=== PATIENT | male | born 1955 | race African-American/Black ===

== ENCOUNTER 2016-11-26 23:05 | Inpatient (IN) | payer OTHER ==
--- NOTE | ~2016-11-26 | EKG ---
PATIENT: KRISTINE WALLACE UNIT #: [id number] Ventricular Rate: 115 BPM Atrial Rate: 115 BPM P-R Interval: 140 ms QRS Duration: 94 ms Q-T Interval: 334 ms QTC Calculation(Bezet): 462 ms P [place]: 61 degrees Calculated R [place]: -36 degrees Calculated T [place]: 69 degrees Diagnosis Line: Sinus tachycardia Diagnosis Line: Possible Left atrial enlargement Diagnosis Line: Left axis deviation Diagnosis Line: Left ventricular hypertrophy Diagnosis Line: Abnormal ECG Diagnosis Line: No previous ECGs available Diagnosis Line: Confirmed by BERYL SUNG MD ([id number]) on 11/27/2016 Diagnosis Line: 6:14:19 PM INTERPRETING MD: ANA LILIA COHEN
--- NOTE | ~2016-11-26 | CR72 ---
[facility] A Service of [facility] & [facility] RADIOLOGY TEXT RESULTS PATIENT: KRISTINE WALLACE LOCATION: [place] [address] : [birth year] UNIT #: [id number] AGE: [address]: Kandice Serrato MD SEX: M ORDER DR: [id number] [facility] [address] [place], [place] [address] [id number] I MR#: [id number] Acc #: [id number] NAME: KRISTINE WALLACE. : 1955 SEX: M STUDY DATE/TIME: 11/26/2016 22:47 UNIT: CEDOF ROOM: 73677 STUDY DESCRIPTION: CR Chest Single View Portable Attending Physician: Christina Mustafa M.D. Ordering Physician: Ronny Lora D.O. Primary Care Physician: Nazia Rucker M.D. MEDICAL IMAGING REPORT This report is preliminary unless electronic signature is present EXAM Chest x-ray portable, 11/26/2016 HISTORY Short of air, cough, COPD, symptoms for a week, asthma, CHF, diabetes, hypertension. COMMENT Single frontal portable view of the chest timed 22:47 11/26/2016 compared to 14:17. There is ectasia at least of the thoracic aorta ascending portion. This is noted on prior study is well and most commonly seen secondary to hypertension or aortic valvular disease. Mild cardiac silhouette enlargement again seen also not changed. There is patchy airspace disease at the left base which is new on comparison to prior and please correlate for any clinical concern for aspiration or early pneumonia. It is possible this is a small amount of patchy pulmonary edema due to volume overload but there is no suggestion of congestive failure otherwise. No pleural effusion is suspected. Probably some chronic changes at the right base. No pneumothorax. IMPRESSION 1. I believe there is a small amount of new patchy airspace disease left lung base. Please correlate for clinical concern for aspiration or early pneumonia. There is again mild cardiac silhouette enlargement. There is no pleural effusion or other suggestion of congestive failure. 2. Redemonstration of ectasia of the ascending thoracic aorta. This is most commonly seen secondary to hypertension or aortic valvular disease. It is also noted on the study of 11/19/2016. [facility] A Service of [facility] RADIOLOGY TEXT RESULTS PATIENT: KRISTINE WALLACE LOCATION: [facility] [id number] : [birth year] UNIT #: [id number] AGE: [address]: Kandice Serrato MD SEX: M ORDER DR: Dictated by... Jena Brooke M.D. THIS IS AN ELECTRONICALLY VERIFIED REPORT Jena Brooke M.D. at 11/27/2016 2:19 PM JAYLAN/ashanti TD: 11/27/2016 03:32 JOB #: [id number] MEDICAL IMAGING REPORT COPY
--- NOTE | ~2016-11-26 | HP ---
Unit #: [id number] #: [id number] Patient: KRISTINE WALLACE [id number] [address] [place], [place] [address] [id number] I MR#: [id number] NAME: KRISTINE WALLACE. ROOM: 05702 Age: 61 Sex: M Admission Date: 11/27/2016 : 1955 Attending Physician: Christina Mustafa M.D. Primary Care Physician: Nazia Rucker M.D. HISTORY AND PHYSICAL CHIEF COMPLAINT Community acquired pneumonia with COPD exacerbation, failing outpatient treatment. HISTORY This pleasant 61-year-old male with COPD, nonischemic cardiomyopathy, AODM, is admitted for pneumonia. The patient was well until 1 1/2 weeks prior to admission when he developed increasing shortness of breath despite using his nebulizer and being placed on steroids. More recently developed a deep cough productive of yellow sputum, feeling feverish, chilled with worsening bronchospasm. Also noted poor p.o. intake yesterday with upper abdominal discomfort. He presented to this emergency department last evening with stable vital signs, except somewhat tachycardic. On examination he does have bronchospasm, chest x-ray shows a left lower lobe infiltrates. Labs are notable for serum glucose of 492. In the ER the patient was treated with 125 mg of Solu-Medrol, 2 g of Rocephin, 500 mg of IV Zithromax. He was given 10 IV of regular insulin, currently is receiving a saline bolus. PAST MEDICAL HISTORY 1. History of hypotension secondary to dehydration. 2. Chronic kidney disease with a baseline creatinine of about 1.4. 3. COPD. 4. AODM. 5. Nonischemic cardiomyopathy followed by Dr. Morton. However, most recent echo 02/2014 revealed an ejection fraction greater than 55% with mild MR and AR. Cardiac catheterization in 2004 revealed angiographically normal coronary arteries. 6. Hypertension. 7. Tonsillectomy. 8. Elbow surgery. 9. Cyst removal. 10. Cataract extraction. ALLERGIES No known drug allergies. HOME MEDICATIONS Neurontin 600 mg q.i.d.; Spiriva one puff daily; Symbicort 80/4.5 two puffs b.i.d.; Viagra 100 mg as needed; Lipitor 80 mg daily; Medrol dose pack; Lasix 40 mg b.i.d.; Diovan 80 mg daily; Coreg 6.25 mg b.i.d.; Levemir 45 units subcu b.i.d. Patient states that normally he uses 35 units subcu b.i.d. but this was increased while on steroids. Unit #: [id number] #: [id number] Patient: KRISTINE WALLACE FAMILY HISTORY Diabetes mellitus. SOCIAL HISTORY The patient lives with his . He seldom drinks alcohol. Stopped smoking in 2004. REVIEW OF SYSTEMS Notable for shortness of breath, productive cough, feverish, chills, poor p.o. intake, epigastric discomfort, diabetes, nonischemic cardiomyopathy, chronic kidney disease, AODM, neuropathy, hypertension, and above mentioned surgeries. All other systems were reviewed and are negative. PHYSICAL EXAMINATION GENERAL: Pleasant, somewhat ill-appearing, young-appearing, 61-year-old male. VITAL SIGNS: Temperature 98.1, pulse 115, respirations 19, blood pressure 118/74, O2 saturation is 98% on room air. HEENT: Eyes - PERRLA, extraocular muscles are intact. Pharynx is benign. NECK: Supple without adenopathy or thyromegaly. CHEST: Reveals end expiratory wheeze and some crackles at the left base, along with rhonchi. CARDIAC: Tachy S1 and S2 without murmur. ABDOMEN: Bowel sounds are present. Mild epigastric tenderness without rebound or guarding. No hepatosplenomegaly or masses. EXTREMITIES: Without clubbing, cyanosis or edema. Pedal pulses are diminished. No ulcers on the feet. NEUROLOGIC: Patient is awake, alert, and oriented. Cranial nerves are intact. Equal strength throughout. DIAGNOSTIC STUDIES ADMISSION LABS: Hematocrit is 45.5, white blood count is 18, normal platelet count. Coags normal. SMA 12 - glucose 492, BUN 32, creatinine 1.5 up from a creatinine of 1.4, sodium 130, which corrects with glucose, chloride 94, protein is 8.4, alk phos is 121, BNP is 192. Lactic acid normal of uncertain significance, as patient does appear to be ill. Troponin is negative. Influenza serology last week negative. IMAGING STUDIES: Chest x-ray suspicious for a left lower lobe infiltrate. CARDIOLOGY STUDIES: EKG shows sinus tachycardia, rate 115, left axis deviation. ASSESSMENT 1. Community acquired pneumonia with COPD exacerbation, failing outpatient treatment. 2. Uncontrolled AODM secondary to steroids. 3. Nonischemic cardiomyopathy, although most recent echo revealed an ejection fraction of 55%. 4. Chronic kidney disease. 5. Hypertension. 6. Epigastric tenderness. PLANS 1. Rocephin, Zithromax, pending cultures. 2. Mucolytics, bronchodilators, and short course of steroids. 3. IV fluids and supportive treatment. Will hold Lasix for now. Unit #: [id number] #: [id number] Patient: KRISTINE WALLACE 4. DVT and gastritis prophylaxis. 5. Increase Levemir and sliding scale insulin. 6. Check amylase and lipase. Dictated by Christina Mustafa M.D. CASA/morteza TD: 11/27/2016 06:35 JOB #: [id number] HISTORY AND PHYSICAL X Christina Mustafa MD X HISTORY AND PHYSICAL
--- NOTE | ~2016-11-26 | DS ---
Unit #: [id number] #: [id number] Patient: KRISTINE WALLACE [id number] [address] [address] [id number] I MR#: [id number] NAME: KRISTINE WALLACE. ROOM: 552 Age: 61 Sex: M Admission Date: 11/27/2016 : 1955 Discharge Date: Attending Physician: Kandice Serrato M.D. Primary Care Physician: Nazia Rucker M.D. DISCHARGE SUMMARY DISCHARGE DIAGNOSES 1. Community-acquired pneumonia. 2. Chronic obstructive pulmonary disease with exacerbation. 3. Diabetes mellitus type 2. 4. Noncompliant with medications. 5. Hyperglycemia, secondary to steroids. 6. Chronic diastolic heart failure. 7. Chronic kidney disease stage 2. 8. Hypertension. CONSULTATION None. PROCEDURE None. DIAGNOSTIC STUDIES LABORATORY: Glucose 207. Sputum culture is normal respiratory leah and gram-negative rods. Sodium 134, creatinine 1.4, albumin 2.6. WBC 20.8, hemoglobin 11.8, platelets 216,000. Blood cultures negative. Lactic acid 1.1. BNP 192. ALLERGIES None. DISCHARGE MEDICATIONS 1. Symbicort two puffs inhalation b.i.d. 2. Prednisone tapering dose. 3. Spiriva two puffs inhalation daily. 4. Neurontin 600 four times daily. 5. Atorvastatin 80 daily. 6. Coreg 6.25 p.o. b.i.d. 7. Lasix 40 p.o. b.i.d. 8. Diovan 80 daily. 9. Levemir 50 units subcutaneous b.i.d. 10. NovoLog 5 units subcutaneous three times daily with meals, prescription given. 11. Viagra 100 mg p.o. daily p.r.n. 12. Augmentin 875 mg p.o. b.i.d. 13. Albuterol mini nebs four times daily, home medication. HOSPITALIZATION COURSE A 61 year old admitted because of shortness of breath. Unit #: [id number] #: [id number] Patient: KRISTINE WALLACE Community-acquired pneumonia: The patient was given IV Rocephin and Zithromax. The patient currently afebrile. Mild elevated leukocytosis secondary to steroids. The patient will be discharged on Augmentin. COPD with exacerbation: Started on IV Solu-Medrol and DuoNeb. Currently breathing better. Lungs clear. The patient will be discharged on DuoNeb, Spiriva, prednisone tapering dose. Diabetes mellitus type 2: Uncontrolled, most likely secondary to steroids and also noncompliant with his diet. He was eating [employer] and biscuits in his room when I went into his room today. Industrial Sales Engineer saw this patient, talked to him in detail. I gave NovoLog insulin during meal time also on top of his Levemir. I increased his Levemir dose. He needs to follow with family physician for followup of diabetes. The patient understood the followup instructions. Chronic diastolic heart failure: Stable. DISPOSITION The patient will be discharged home. FOLLOWUP Follow with family physician in one week time. Dictated by... Sara Cox TD: 11/29/2016 15:25 JOB #: [id number] DISCHARGE SUMMARY X Kandice Serrato MD X DISCHARGE SUMMARY
--- NOTE | ~2016-11-26 | A ---
[facility] Nutrition Therapy DATE: 11/27/16 Patient: KRISTINE WALLACE Physician: VIVIAN Address: [address] [place] [address] Room/Bed: [address] [place] [address], Zip: [place] [address] Admit Date: 11/27/16 Date of : [birth year] Height: Weight: 195 88.45 NUTRITIONAL ASSESSMENT: REASON: RD c/s for DM education PMH: COPD, Cardiomyopathy, CKD, HTN, DM Anthropometrics: 70", 195#, BMI 28 Labs: Gluc 307, BUN 31, POC 237 Meds: Lipitor, Novolog, Pepcid, Levemir, Solumedrol Assessment: 61 y/o male admitted for CAP/COPD exac. Hx DM. Gluc in ER-400s. MD requesting diet education. Pt reports has been to Diabetic classes, understands what foods contain carbs and familiar w/carb counting. Appears to have difficulty sticking w/schedule and staying compliant w/diet. States works 2nd shift. Encouraged 60 gm carb/meal and 30 gm/bedtime snack. Pt verbalized understanding. Understands risk uncontrolled DM. Intervention: 1. Carb consistent diet Monitoring, Evaluation and Goals: 1. Improve Gluc Recommendations: Continue current diet Respectfully, BERNARD WEISS RD, LD Food and Nutritional Services [facility] cc: client file
[2016-11-26 23:00] LABS: BASOPHIL# 0.1 X10e3 (0-0.3); BASOPHIL% 0.3 % (0-2.5); EOSINOPHIL# 0.1 X10e3 (0-0.7); EOSINOPHIL% 0.6 % (0.0-7.0); HEMATOCRIT 45.5 % (38.0-50.0); HEMOGLOBIN 15.5 gm/dL (13.0-16.0); LYMPHOCYTE# 1.3 X10e3 (1.0-3.5); LYMPHOCYTE% 7.4 % (17.0-45.0); MEAN CELL VOLUME 82.9 FL (83-96); MEAN CORPUSCULAR HEMOGLOBIN 28.2 PG (28-34); MEAN PLATELET VOLUME 10.4 FL (6.5-11.5); MONOCYTE# 1.3 X10e3 (0-1.0); MONOCYTE% 7.3 % (3.0-12.0); NEUTROPHIL# 15.2 X10e3 (1.5-7.1); NEUTROPHIL% 84.4 % (40-75); PLATELET COUNT 289 X10e3 (140-420); RED CELL DISTRIBUTION WIDTH 13.5 % (11.0-15.5)
[2016-11-26 23:01] LABS: DIFF IND YES
[~2016-11-26 23:05] MED LIST: ACETAMINOPHEN PO; ADVAIR 250-501 EAC1 IH; ADVAIR 250-501 EACH IH; ALB/IPRATROPIUM/1 E1 INH; ALBUTEROL 0.5ML INH; ALBUTEROL17 G1 IH; ALBUTEROL17 GM INH; ALDACTONE PO; ALDACTONE25 MG PO; ASPIRIN PO; ASPIRIN81 MG PO; CARVEDILOL6.25 MG PO; CHERATUSSIN AC118 ML PO; CLEOCIN PO; COLACE PO; COMBIVENT INH14.7 GM; COMBIVENT MININEB INH; COMBIVENT U/D3 ML INH; COMBIVENT14.7 GM INH; COREG PO; COREG3.125 MG PO; COREG6.25 MG PO; DIOVAN160 MG PO; DIOVAN80 M1 PO; DOXYCYCLIN25 MG/5 ML PO; DOXYCYCLINE HY100 M1 PO; DOXYCYCLINE150 MG PO; DUONEB 2.5-0.5 M3 ML NEB; EXFORGE; EXFORGE 10-1601 TAB PO; FLONASE16 GM; FUROSEMIDE40 MG PO; GLIPIZIDE10 MG PO; GLIPIZIDE10 MG/BOTT PO; KAYEXALATE453.6 GM PO; KCL PO; LASIX PO; LEVAQUIN PO; LEVAQUIN750 MG PO; LEVEMIR FL100 UNIT/1 SUBQ; LEVEMIR SUBQ; LEVEMIR100 U/ML SUBQ; LORTAB PO; LOTREL 5/20 MG1 CAP PO; MEDROL DOSEPAK4 MG; MEDROL DOSEPAK4 MG DOB; MEDROL PO; MEDROL4 MG/DOSE- PO; NAPROSYN375 MG PO; NAPROSYN500 MG PO; NEURONTIN600 MG PO; NOVOLOG FL100 UNIT/1; PAIN RELIEVER325 M1 PO; PHENERGAN DM1 ML DOB; PRAVACHOL20 MG; PRAVACHOL20 MG PO; PRAVASTATIN SOD20 MG PO; PRAVASTATIN SOD40 MG PO; PREDNISONE PO; PREDNISONE10 MG PO; PREDNISONE10 MG/DOSE PO; PRILOSEC20 MG PO; PROTONIX PO; RAYOS5 MG PO; ROBITUSSIN15 MG/5 ML PO; SPIRIVA RESPIMAT4 G1 INH; STERAPRED5 MG/DOSE1; STERAPRED5 MG/DOSE1 PO; SYMBICORT INH; SYMBICORT80 INH; TUSSIN15 MG/5 M1 PO; ULTRAM PO; VALSARTAN80 MG PO; VIBRAMYCIN100 M1; VIBRAMYCIN100 M1 PO; ZITHROMAX PO; ZITHROMAX1 G/PKT PO; ZITHROMAX500 MG PO; ZYRTEC PO
[2016-11-26] MEDS ORDERED: TENORMIN25 MG PO (23:14)
[2016-11-26 23:24] LABS: ALBUMIN SERUM 4.4 g/dL (3.5-5.0); ALKALINE PHOSPHATASE 121 U/L (32-92); ALT (SGPT) 33 U/L (10-40); ANISOCYTOSIS SL; AST (SGOT) 20 U/L (10-42); BILIRUBIN, DIRECT 0.1 mg/dL (0.0-0.2); BILIRUBIN,INDIRECT 0.7 mg/dL (0.0-0.9); BILIRUBIN,TOTAL 0.8 mg/dL (0.2-2.0); BLOOD UREA NITROGEN 32 mg/dL (9-23); BUN/CREATININE RATIO 21.33; CALCIUM SERUM 9.9 mg/dL (8.4-10.2); CARBON DIOXIDE 25 mmol/L (22-31); CHLORIDE 94 mmol/L (100-111); CREATININE SERUM 1.5 mg/dL (0.6-1.4); GLOM FILT RATE Estimated ABOVE60 mL/min (>60); GLUCOSE FASTING 492 mg/dL (70-110); PLATELET ESTIMATE NORMAL (NORMAL); POTASSIUM 4.1 mmol/L (3.5-5.1); PROTEIN TOTAL SERUM 8.4 g/dL (6.0-8.3); SODIUM 130 mmol/L (135-145)
[2016-11-27 00:30] LABS: PARTIAL THROMBOPLASTIN TIME 25.4 SECONDS (23.5-31.3); PROTHROMBIN TIME (PATIENT) 10.4 SECONDS (9.6-11.5)
[2016-11-27] MEDS ORDERED: NEURONTIN600 MG PO (00:48)
[2016-11-27] MEDS ORDERED: SYMBICORT80 INH (00:49)
[2016-11-27] MEDS ORDERED: SPIRIVA RESPIMAT4 G1 INH (00:49)
[2016-11-27] MEDS ORDERED: VIAGRA PO (00:50)
[2016-11-27] MEDS ORDERED: ATORVASTATIN CA80 MG PO (00:51)
[2016-11-27] MEDS ORDERED: MEDROL4 MG/DOSE- PO (00:51)
[2016-11-27] MEDS ORDERED: DIOVAN80 M1 PO (00:52)
[2016-11-27] MEDS ORDERED: LASIX PO (00:52)
[2016-11-27] MEDS ORDERED: CARVEDILOL6.25 MG PO (00:54)
[2016-11-27] MEDS ORDERED: LEVEMIR100 UNITS/ SUBQ (00:54)
[2016-11-27 01:10] LABS: POC - CKMB 2.9 ng/mL (0.0-7.9); POC - TROPONIN <0.05 ng/mL (<=0.05)
[2016-11-27 03:35] LABS: BASOPHIL# 0.1 X10e3 (0-0.3); BASOPHIL% 0.3 % (0-2.5); EOSINOPHIL% 0.1 % (0.0-7.0); HEMATOCRIT 40.4 % (38.0-50.0); LYMPHOCYTE% 4.6 % (17.0-45.0); MEAN CELL VOLUME 81.1 FL (83-96); MEAN CORPUSCULAR HEMOGLOBIN 28.1 PG (28-34); MEAN CORPUSCULAR HGB CONC 34.7 g/dL (30-36); MEAN PLATELET VOLUME 9.5 FL (6.5-11.5); MONOCYTE# 0.6 X10e3 (0-1.0); MONOCYTE% 2.9 % (3.0-12.0); NEUTROPHIL# 20.4 X10e3 (1.5-7.1); NEUTROPHIL% 92.1 % (40-75); PLATELET COUNT 241 X10e3 (140-420); RED BLOOD COUNT 4.98 X10e (3.90-5.60); RED CELL DISTRIBUTION WIDTH 13.3 % (11.0-15.5); WHITE BLOOD COUNT 22.1 X10e3 (4.0-10.5)
[2016-11-27 03:39] LABS: DIFF IND NO
[2016-11-27 03:47] LABS: AMYLASE 29 U/L (0-46); BLOOD UREA NITROGEN 31 mg/dL (9-23); BUN/CREATININE RATIO 22.14; CALCIUM SERUM 8.7 mg/dL (8.4-10.2); CARBON DIOXIDE 22 mmol/L (22-31); CHLORIDE 102 mmol/L (100-111); CREATININE SERUM 1.4 mg/dL (0.6-1.4); GLOM FILT RATE Estimated ABOVE60 mL/min (>60); GLUCOSE FASTING 307 mg/dL (70-110); LIPASE 35 U/L (22-51); POTASSIUM 4.5 mmol/L (3.5-5.1); SODIUM 132 mmol/L (135-145)
[2016-11-28 05:48] LABS: MEAN CELL VOLUME 82.7 FL (83-96); MEAN CORPUSCULAR HEMOGLOBIN 27.9 PG (28-34); MEAN CORPUSCULAR HGB CONC 33.7 g/dL (30-36); MEAN PLATELET VOLUME 10.3 FL (6.5-11.5); RED BLOOD COUNT 4.22 X10e (3.90-5.60); RED CELL DISTRIBUTION WIDTH 13.4 % (11.0-15.5); WHITE BLOOD COUNT 20.8 X10e3 (4.0-10.5)
[2016-11-28 05:50] LABS: HEMOGLOBIN 11.8 gm/dL (13.0-16.0)
[2016-11-28 07:04] LABS: ALBUMIN SERUM 2.6 g/dL (3.5-5.0); ALKALINE PHOSPHATASE 78 U/L (32-92); ALT (SGPT) 19 U/L (10-40); AST (SGOT) 13 U/L (10-42); BILIRUBIN,TOTAL 0.5 mg/dL (0.2-2.0); BLOOD UREA NITROGEN 44 mg/dL (9-23); BUN/CREATININE RATIO 31.42; CARBON DIOXIDE 19 mmol/L (22-31); CHLORIDE 106 mmol/L (100-111); CREATININE SERUM 1.4 mg/dL (0.6-1.4); GLOM FILT RATE Estimated ABOVE60 mL/min (>60); GLUCOSE FASTING 438 mg/dL (70-110); MAGNESIUM 1.8 mg/dL (1.6-3.0); PHOSPHOROUS 3.3 mg/dL (2.5-4.6); POTASSIUM 4.6 mmol/L (3.5-5.1); PROTEIN TOTAL SERUM 5.6 g/dL (6.0-8.3); SODIUM 134 mmol/L (135-145)
[2016-11-29] MEDS ORDERED: PREDNISONE10 MG (14:55)
[2016-11-29] MEDS ORDERED: PREDNISONE10 MG PO (14:58)
[2016-11-29] MEDS ORDERED: NOVOLOG100 UNITS/ SUBQ (15:00)
[2016-11-29] MEDS ORDERED: AUGMENTIN875 M1 PO (15:07)
== END 2016-11-29 15:45 | disposition home or self-care (01) | DRG 190 ==
LOC: CED 23:05 → CEDOF 11-27 01:40 → C5B 11-27 07:52
PROVIDERS: Emergency Medicine; Internal Medicine
DX: J44.1 Chronic obstructive pulmonary disease with (acute) exacerbation (principal); J18.9 Pneumonia, unspecified organism; I50.32 Chronic diastolic (congestive) heart failure; E09.8 Drug or chemical induced diabetes mellitus with unspecified complications; Z91.14 Patient's other noncompliance with medication regimen; I12.9 Hypertensive chronic kidney disease with stage 1 through stage 4 chronic kidney disease, or unspecified chronic kidney disease; N18.2 Chronic kidney disease, stage 2 (mild); T38.0X5A Adverse effect of glucocorticoids and synthetic analogues, initial encounter; Z83.3 Family history of diabetes mellitus; Z79.4 Long term (current) use of insulin
CPT/HCPCS: 36415; 71010; 80048; 80053; 80076; 82150; 82553; 82947; 83605; 83690; 83735; 83880; 84100; 84484; 85025; 85027; 85610; 85730; 87040; 87070; 87077; 87186; 87205; 93005; 94640; 94760; 96365; 96375; 99285; J0456; J0696; J1815; J2920; J2930

== ENCOUNTER 2017-01-19 06:29 | Emergency (ER) | payer OTHER ==
--- NOTE | ~2017-01-19 | EKG ---
PATIENT: KRISTINE WALLACE UNIT #: [id number] Ventricular Rate: 87 BPM Atrial Rate: 87 BPM P-R Interval: 158 ms QRS Duration: 98 ms Q-T Interval: 412 ms QTC Calculation(Bezet): 495 ms P [place]: 63 degrees Calculated R [place]: -43 degrees Calculated T [place]: 28 degrees Diagnosis Line: Normal sinus rhythm Diagnosis Line: Possible Left atrial enlargement Diagnosis Line: Left axis deviation Diagnosis Line: Left ventricular hypertrophy Diagnosis Line: Prolonged QT Diagnosis Line: Abnormal ECG Diagnosis Line: No previous ECGs available Diagnosis Line: Confirmed by JOSÉ LUIS SULLIVAN MD ([id number]) on Diagnosis Line: 01/19/2017 3:55:24 PM INTERPRETING MD: STUART
--- NOTE | ~2017-01-19 | CR72 ---
[facility] A Service of [facility] & [facility] RADIOLOGY TEXT RESULTS PATIENT: KRISTINE WALLACE LOCATION: [facility] : [birth year] UNIT #: [id number] AGE: [address]: Pankaj Corbett MD SEX: M ORDER DR: [id number] [facility] [address] [place], [place] [address] [id number] E MR#: [id number] Acc #: [id number] NAME: KRISTINE WALLACE. : 1955 SEX: M STUDY DATE/TIME: 01/19/2017 5:47 UNIT: [facility] ROOM: STUDY DESCRIPTION: CR Chest Single View Portable Attending Physician: Pankaj Corbett M.D. Ordering Physician: Koffi Combs M.D. Primary Care Physician: Nazia Rucker M.D. MEDICAL IMAGING REPORT This report is preliminary unless electronic signature is present EXAM Portable chest INDICATIONS Shortness of air and weakness beginning today. COMPARISON 11/26/2016. A portable view of the chest was obtained. The heart size and vascularity are normal. Lungs are clear. Bones are unremarkable. IMPRESSION No active disease. Dictated by... Itz Barakat M.D. THIS IS AN ELECTRONICALLY VERIFIED REPORT Itz Barakat M.D. at 01/19/2017 9:55 PM TETO/napoleon TD: 01/19/2017 19:40 JOB #: [id number] MEDICAL IMAGING REPORT Page 1 of 1 COPY
[2017-01-19 06:05] LABS: BASOPHIL% 0.3 % (0-2.5); EOSINOPHIL# 0.4 X10e3 (0-0.7); EOSINOPHIL% 4.9 % (0.0-7.0); HEMOGLOBIN 12.9 gm/dL (13.0-16.0); LYMPHOCYTE# 1.7 X10e3 (1.0-3.5); LYMPHOCYTE% 18.3 % (17.0-45.0); MEAN CELL VOLUME 84.6 FL (83-96); MEAN CORPUSCULAR HEMOGLOBIN 28.8 PG (28-34); MEAN PLATELET VOLUME 10.5 FL (6.5-11.5); MONOCYTE# 0.8 X10e3 (0-1.0); MONOCYTE% 8.9 % (3.0-12.0); NEUTROPHIL# 6.2 X10e3 (1.5-7.1); NEUTROPHIL% 67.6 % (40-75); PLATELET COUNT 193 X10e3 (140-420); RED BLOOD COUNT 4.49 X10e (3.90-5.60); RED CELL DISTRIBUTION WIDTH 14.7 % (11.0-15.5); WHITE BLOOD COUNT 9.1 X10e3 (4.0-10.5)
[2017-01-19 06:08] LABS: DIFF IND NO
[~2017-01-19 06:29] MED LIST changes: +ATORVASTATIN CA80 MG PO; +AUGMENTIN875 M1 PO; +LEVEMIR100 UNITS/ SUBQ; +NOVOLOG100 UNITS/ SUBQ; +PREDNISONE10 MG; +TENORMIN25 MG PO; +VIAGRA PO
[2017-01-19 06:42] LABS: ALBUMIN SERUM 3.5 g/dL (3.5-5.0); BILIRUBIN, DIRECT 0.1 mg/dL (0.0-0.2); BILIRUBIN,INDIRECT 0.4 mg/dL (0.0-0.9); BILIRUBIN,TOTAL 0.5 mg/dL (0.2-2.0); BUN/CREATININE RATIO 16.15; CREATININE SERUM 1.3 mg/dL (0.6-1.4); GLOM FILT RATE Estimated 68.8 mL/min (>60); POTASSIUM 3.8 mmol/L (3.5-5.1); PROTEIN TOTAL SERUM 6.6 g/dL (6.0-8.3)
[2017-01-19 06:53] LABS: POC - CKMB 2.1 ng/mL (0.0-7.9); POC - TROPONIN <0.05 ng/mL (<=0.05)
== END 2017-01-19 07:45 | disposition home or self-care (01) ==
LOC: CED 06:29
PROVIDERS: Emergency Medicine
DX: J44.1 Chronic obstructive pulmonary disease with (acute) exacerbation (principal); I11.0 Hypertensive heart disease with heart failure; I50.9 Heart failure, unspecified; E10.9 Type 1 diabetes mellitus without complications; Z79.899 Other long term (current) drug therapy
CPT/HCPCS: 36415; 71010; 80048; 80076; 82553; 82947; 83880; 84484; 85025; 93005; 94640; 96374; 99284; J1940

== ENCOUNTER 2017-03-10 04:51 | Emergency (ER) | payer OTHER ==
--- NOTE | ~2017-03-10 | CR72 ---
[facility] A Service of [facility] & [facility] RADIOLOGY TEXT RESULTS PATIENT: KRISTINE WALLACE LOCATION: [facility] : 57 UNIT #: [id number] AGE: [address]: Tiara Dacosta MD SEX: M ORDER DR: [id number] [facility] [address] [place], [place] [address] [id number] E MR#: [id number] Acc #: [id number] NAME: KRISTINE WALLACE : 1955 SEX: M STUDY DATE/TIME: 03/10/2017 6:57 UNIT: [facility] ROOM: STUDY DESCRIPTION: CR Chest Single View Portable Attending Physician: Tiara Dacosta M.D. Ordering Physician: Tiara Dacosta M.D. Primary Care Physician: Nazia Rucker M.D. MEDICAL IMAGING REPORT This report is preliminary unless electronic signature is present EXAM Portable chest, 03/10/2017. HISTORY 61-year-old male with shortness of air for 30-days. Essential hypertension. COPD. COMPARISON Chest, 01/19/2017. FINDINGS Frontal chest demonstrates clear lungs. No pleural effusion or pneumothorax. Heart size and mediastinum are within normal limits. Pulmonary vasculature unremarkable. IMPRESSION No acute cardiopulmonary findings. Dictated by... Tej Montoya M.D. THIS IS AN ELECTRONICALLY VERIFIED REPORT Tej Montoya M.D. at 03/11/2017 2:33 PM SIM/saúl TD: 03/10/2017 09:42 JOB #: [id number] MEDICAL IMAGING REPORT Page 1 of 1 COPY
[2017-03-10 07:21] LABS: BASOPHIL% 0.4 % (0-2.5); DIFF IND NO; EOSINOPHIL# 0.7 X10e3 (0-0.7); EOSINOPHIL% 7.1 % (0.0-7.0); HEMATOCRIT 38.9 % (38.0-50.0); HEMOGLOBIN 13.2 gm/dL (13.0-16.0); LYMPHOCYTE# 1.7 X10e3 (1.0-3.5); LYMPHOCYTE% 17.7 % (17.0-45.0); MEAN CELL VOLUME 85.2 FL (83-96); MEAN CORPUSCULAR HEMOGLOBIN 28.9 PG (28-34); MEAN CORPUSCULAR HGB CONC 33.9 g/dL (30-36); MEAN PLATELET VOLUME 10.2 FL (6.5-11.5); MONOCYTE# 0.9 X10e3 (0-1.0); NEUTROPHIL# 6.2 X10e3 (1.5-7.1); NEUTROPHIL% 64.8 % (40-75); PLATELET COUNT 220 X10e3 (140-420); RED BLOOD COUNT 4.57 X10e (3.90-5.60); RED CELL DISTRIBUTION WIDTH 13.6 % (11.0-15.5); WHITE BLOOD COUNT 9.5 X10e3 (4.0-10.5)
[2017-03-10 07:48] LABS: ALBUMIN SERUM 3.4 g/dL (3.5-5.0); ALKALINE PHOSPHATASE 96 U/L (32-92); ALT (SGPT) 19 U/L (10-40); AST (SGOT) 14 U/L (10-42); BILIRUBIN, DIRECT <0.1 mg/dL (0.0-0.2); BILIRUBIN,INDIRECT 0.5 mg/dL (0.0-0.9); BILIRUBIN,TOTAL 0.6 mg/dL (0.2-2.0); BLOOD UREA NITROGEN 36 mg/dL (9-23); CALCIUM SERUM 9.1 mg/dL (8.4-10.2); CARBON DIOXIDE 23 mmol/L (22-31); CHLORIDE 105 mmol/L (100-111); CREATININE SERUM 1.8 mg/dL (0.6-1.4); GLOM FILT RATE Estimated 46.4 mL/min (>60); GLUCOSE FASTING 342 mg/dL (70-110); POTASSIUM 3.9 mmol/L (3.5-5.1); PROTEIN TOTAL SERUM 6.7 g/dL (6.0-8.3); SODIUM 137 mmol/L (135-145)
== END 2017-03-10 11:06 | disposition home or self-care (01) ==
LOC: CED 04:51
PROVIDERS: Emergency Medicine
DX: J44.1 Chronic obstructive pulmonary disease with (acute) exacerbation (principal); Z90.89 Acquired absence of other organs; Z98.890 Other specified postprocedural states; E11.22 Type 2 diabetes mellitus with diabetic chronic kidney disease; I13.0 Hypertensive heart and chronic kidney disease with heart failure and stage 1 through stage 4 chronic kidney disease, or unspecified chronic kidney disease; N18.9 Chronic kidney disease, unspecified; I50.9 Heart failure, unspecified; Z79.4 Long term (current) use of insulin; Z79.899 Other long term (current) drug therapy; Z87.891 Personal history of nicotine dependence
CPT/HCPCS: 71010; 80048; 80076; 85025; 94640; 96365; 96375; 99284; J2930; J3475

== ENCOUNTER 2017-04-07 08:53 | Emergency (ER) | payer OTHER ==
--- NOTE | ~2017-04-07 | EKG ---
PATIENT: KRISTINE WALLACE UNIT #: [id number] Ventricular Rate: 90 BPM Atrial Rate: 90 BPM P-R Interval: 158 ms QRS Duration: 94 ms Q-T Interval: 390 ms QTC Calculation(Bezet): 477 ms P [place]: 61 degrees Calculated R [place]: -11 degrees Calculated T [place]: 15 degrees Diagnosis Line: Normal sinus rhythm Diagnosis Line: Normal ECG Diagnosis Line: When compared with ECG of 19-JAN-2017 06:26, Diagnosis Line: No significant change was found Diagnosis Line: Confirmed by BERYL SUNG MD ([id number]) on 04/09/2017 Diagnosis Line: 2:56:08 PM INTERPRETING MD: ANA LILIA COHEN
--- NOTE | ~2017-04-07 | CR72 ---
[facility] A Service of [facility] & [facility] RADIOLOGY TEXT RESULTS PATIENT: KRISTINE WALLACE LOCATION: [facility] : 57 UNIT #: [id number] AGE: [address]: Hamilton Villanueva MD SEX: M ORDER DR: [id number] [facility] [address] [place], [place] [address] [id number] E MR#: [id number] Acc #: [id number] NAME: KRISTINE WALLACE. : 1955 SEX: M STUDY DATE/TIME: 04/07/2017 UNIT: [facility] ROOM: STUDY DESCRIPTION: CR Chest Single View Portable Attending Physician: Hamilton Villanueva M.D. Ordering Physician: Hamilton Villanueva M.D. Primary Care Physician: Nazia Rucker M.D. MEDICAL IMAGING REPORT This report is preliminary unless electronic signature is present EXAM Chest portable 04/07/2017 0923 hours HISTORY 61-year-old with shortness of air today. History of diabetes and congestive heart failure, hypertension. COMPARISON 03/10/2017. FINDINGS Upright PA and lateral views of the chest demonstrate stable mild cardiomegaly with a tortuous aorta. The pulmonary vascularity is normal. The lungs are clear and there are no effusions. IMPRESSION There is mild cardiomegaly and a tortuous, perhaps ectatic aorta, unchanged 03/10/2017. The lungs are clear and there are no effusions. Dictated by... Kristen Sinclair M.D. THIS IS AN ELECTRONICALLY VERIFIED REPORT Kristen Sinclair M.D. at 04/07/2017 6:05 PM STEPHANIE/ronald TD: 04/07/2017 17:16 JOB #: [id number] MEDICAL IMAGING REPORT Page 1 of 1 COPY
[2017-04-07 09:30] LABS: BASOPHIL# 0.1 X10e3 (0-0.3); BASOPHIL% 0.5 % (0-2.5); EOSINOPHIL# 0.6 X10e3 (0-0.7); EOSINOPHIL% 6.2 % (0.0-7.0); HEMOGLOBIN 13.4 gm/dL (13.0-16.0); LYMPHOCYTE# 1.7 X10e3 (1.0-3.5); LYMPHOCYTE% 18.2 % (17.0-45.0); MEAN CELL VOLUME 84.7 FL (83-96); MEAN CORPUSCULAR HEMOGLOBIN 28.5 PG (28-34); MEAN CORPUSCULAR HGB CONC 33.6 g/dL (30-36); MEAN PLATELET VOLUME 9.9 FL (6.5-11.5); MONOCYTE# 0.7 X10e3 (0-1.0); MONOCYTE% 7.5 % (3.0-12.0); NEUTROPHIL# 6.5 X10e3 (1.5-7.1); NEUTROPHIL% 67.6 % (40-75); PLATELET COUNT 236 X10e3 (140-420); RED BLOOD COUNT 4.72 X10e (3.90-5.60); RED CELL DISTRIBUTION WIDTH 13.7 % (11.0-15.5); WHITE BLOOD COUNT 9.6 X10e3 (4.0-10.5)
[2017-04-07 09:41] LABS: DIFF IND NO
[2017-04-07 09:48] LABS: POC - CKMB 2.5 ng/mL (0.0-7.9); POC - TROPONIN <0.05 ng/mL (<=0.05)
[2017-04-07 10:10] LABS: ALBUMIN SERUM 3.4 g/dL (3.5-5.0); BILIRUBIN, DIRECT 0.1 mg/dL (0.0-0.2); BILIRUBIN,INDIRECT 0.7 mg/dL (0.0-0.9); BILIRUBIN,TOTAL 0.8 mg/dL (0.2-2.0); BUN/CREATININE RATIO 14.61; CALCIUM SERUM 8.3 mg/dL (8.4-10.2); CREATININE SERUM 1.3 mg/dL (0.6-1.4); GLOM FILT RATE Estimated 68.8 mL/min (>60); POTASSIUM 3.7 mmol/L (3.5-5.1); PROTEIN TOTAL SERUM 6.8 g/dL (6.0-8.3)
[2017-04-07 11:20] LABS: POC - CKMB 2.8 ng/mL (0.0-7.9); POC - TROPONIN <0.05 ng/mL (<=0.05)
== END 2017-04-07 12:02 | disposition home or self-care (01) ==
LOC: CED 08:53
PROVIDERS: Emergency Medicine
DX: J44.9 Chronic obstructive pulmonary disease, unspecified (principal); I50.9 Heart failure, unspecified; E11.9 Type 2 diabetes mellitus without complications; Z79.4 Long term (current) use of insulin; Z79.899 Other long term (current) drug therapy
CPT/HCPCS: 36415; 71010; 80048; 80076; 82553; 83880; 84484; 85025; 93005; 94640; 96374; 96375; 99285; J1940; J2930

== ENCOUNTER 2017-04-20 19:12 | Emergency (ER) | payer OTHER ==
[~2017-04-20] VITALS: Ht 177.8 cm; Wt 95.2 kg
--- NOTE | ~2017-04-20 | EKG ---
PATIENT: KRISTINE WALLACE UNIT #: [id number] Ventricular Rate: 93 BPM Atrial Rate: 93 BPM P-R Interval: 152 ms QRS Duration: 100 ms Q-T Interval: 400 ms QTC Calculation(Bezet): 497 ms P [place]: 62 degrees Calculated R [place]: -32 degrees Calculated T [place]: 23 degrees Diagnosis Line: Normal sinus rhythm Diagnosis Line: Possible Left atrial enlargement Diagnosis Line: Left axis deviation Diagnosis Line: Left ventricular hypertrophy Diagnosis Line: Prolonged QT Diagnosis Line: Abnormal ECG Diagnosis Line: Diagnosis Line: Confirmed by JOSÉ LUIS SULLIVAN MD ([id number]) on Diagnosis Line: 04/21/2017 12:21:28 PM INTERPRETING MD: STUART
--- NOTE | ~2017-04-20 | CR72 ---
[facility] A Service of [facility] & [facility] RADIOLOGY TEXT RESULTS PATIENT: KRISTINE WALLACE LOCATION: [facility] : 57 UNIT #: [id number] AGE: [address]: Pankaj Corbett MD SEX: M ORDER DR: [id number] [facility] [address] [place], [place] [address] [id number] E MR#: [id number] Acc #: [id number] NAME: KRISTINE WALLACE. : 1955 SEX: M STUDY DATE/TIME: 04/20/2017 19:39 UNIT: [facility] ROOM: STUDY DESCRIPTION: CR Chest Single View Portable Attending Physician: Pankaj Corbett M.D. Ordering Physician: Ed Doctor [id number] [facility] Primary Care Physician: Nazia Rucker M.D. MEDICAL IMAGING REPORT This report is preliminary unless electronic signature is present EXAM Single view chest INDICATION Shortness of air for 3 days. FINDINGS Single portable AP view of the chest compared to 04/07/2017. Heart and mediastinal contours normal. Lungs are clear. No pleural effusions. IMPRESSION No acute findings. Dictated by... Zen Adorno M.D. THIS IS AN ELECTRONICALLY VERIFIED REPORT Zen Adorno M.D. at 04/21/2017 8:13 AM Sally TD: 04/21/2017 08:04 JOB #: [id number] MEDICAL IMAGING REPORT Page 1 of 1 COPY
[2017-04-20 20:28] LABS: BASOPHIL% 0.2 % (0-2.5); EOSINOPHIL# 0.5 X10e3 (0-0.7); EOSINOPHIL% 4.7 % (0.0-7.0); HEMATOCRIT 39.5 % (38.0-50.0); HEMOGLOBIN 13.3 gm/dL (13.0-16.0); LYMPHOCYTE# 1.7 X10e3 (1.0-3.5); LYMPHOCYTE% 16.5 % (17.0-45.0); MEAN CELL VOLUME 83.5 FL (83-96); MEAN CORPUSCULAR HEMOGLOBIN 28.2 PG (28-34); MEAN CORPUSCULAR HGB CONC 33.7 g/dL (30-36); MEAN PLATELET VOLUME 9.8 FL (6.5-11.5); MONOCYTE# 0.8 X10e3 (0-1.0); NEUTROPHIL# 7.2 X10e3 (1.5-7.1); NEUTROPHIL% 70.6 % (40-75); PLATELET COUNT 215 X10e3 (140-420); RED BLOOD COUNT 4.73 X10e (3.90-5.60); RED CELL DISTRIBUTION WIDTH 13.9 % (11.0-15.5); WHITE BLOOD COUNT 10.3 X10e3 (4.0-10.5)
[2017-04-20 20:30] LABS: DIFF IND NO
[2017-04-20 20:49] LABS: ALBUMIN SERUM 3.7 g/dL (3.5-5.0); BILIRUBIN, DIRECT 0.1 mg/dL (0.0-0.2); BILIRUBIN,INDIRECT 0.4 mg/dL (0.0-0.9); BILIRUBIN,TOTAL 0.5 mg/dL (0.2-2.0); BUN/CREATININE RATIO 17.14; CREATININE SERUM 1.4 mg/dL (0.6-1.4); GLOM FILT RATE Estimated 62.9 mL/min (>60); POTASSIUM 3.3 mmol/L (3.5-5.1); PROTEIN TOTAL SERUM 6.9 g/dL (6.0-8.3)
[2017-04-20 22:36] LABS: POC - CKMB 3.7 ng/mL (0.0-7.9); POC - TROPONIN <0.05 ng/mL (<=0.05)
== END 2017-04-20 23:07 | disposition home or self-care (01) ==
LOC: CED 19:12
PROVIDERS: Emergency Medicine
DX: J44.1 Chronic obstructive pulmonary disease with (acute) exacerbation (principal); I11.0 Hypertensive heart disease with heart failure; I50.9 Heart failure, unspecified; E11.9 Type 2 diabetes mellitus without complications; Z79.899 Other long term (current) drug therapy
CPT/HCPCS: 36415; 71010; 80048; 80076; 82553; 84484; 85025; 93005; 99285; J2930

== ENCOUNTER 2017-06-12 22:12 | Emergency (ER) | payer OTHER ==
[~2017-06-12] VITALS: Ht 177.8 cm; Wt 97.5 kg
--- NOTE | ~2017-06-12 | CR72 ---
[facility] A Service of [facility] & [facility] RADIOLOGY TEXT RESULTS PATIENT: KRISTINE WALLACE LOCATION: [facility] : 57 UNIT #: [id number] AGE: [address]: Tiara Dacosta MD SEX: M ORDER DR: [id number] [facility] [address] [place], [place] [address] [id number] E MR#: [id number] Acc #: [id number] NAME: KRISTINE WALLACE. : 1955 SEX: M STUDY DATE/TIME: 06/12/2017 22:53 UNIT: [facility] ROOM: STUDY DESCRIPTION: CR Chest Single View Portable Attending Physician: Tiara Dacosta M.D. Ordering Physician: Tiara Dacosta M.D. Primary Care Physician: Nazia Rucker M.D. MEDICAL IMAGING REPORT This report is preliminary unless electronic signature is present EXAM Portable chest. INDICATIONS COPD. Shortness of air today. PROCEDURE Frontal view of the chest. COMPARISON 04/20/2017. FINDINGS Stable mild cardiomegaly. There is no dense consolidation, visible pleural fluid or pneumothorax. IMPRESSION 1. No active process. 2. Cardiomegaly is unchanged. Dictated by... Alon Guzman M.D. THIS IS AN ELECTRONICALLY VERIFIED REPORT Alon Guzman M.D. at 06/17/2017 8:58 AM EED/alexandra TD: 06/13/2017 08:40 JOB #: [id number] MEDICAL IMAGING REPORT Page 1 of 1 COPY
== END 2017-06-12 23:55 | disposition home or self-care (01) ==
LOC: CED 22:12
DX: J44.1 Chronic obstructive pulmonary disease with (acute) exacerbation (principal); J06.9 Acute upper respiratory infection, unspecified; E11.9 Type 2 diabetes mellitus without complications; I10 Essential (primary) hypertension; Z79.4 Long term (current) use of insulin; Z79.899 Other long term (current) drug therapy
CPT/HCPCS: 71010; 94640; 96372; 99284; J1100

== ENCOUNTER 2017-06-22 11:51 | Emergency (ER) | payer OTHER ==
[~2017-06-22] VITALS: Ht 177.8 cm; Wt 97.5 kg
--- NOTE | ~2017-06-22 | EKG ---
PATIENT: KRISTINE WALLACE UNIT #: [id number] Ventricular Rate: 87 BPM Atrial Rate: 87 BPM P-R Interval: 146 ms QRS Duration: 90 ms Q-T Interval: 404 ms QTC Calculation(Bezet): 486 ms P [place]: 59 degrees Calculated R [place]: -34 degrees Calculated T [place]: 21 degrees Diagnosis Line: Sinus rhythm with Premature atrial complexes with Diagnosis Line: Aberrant conduction Diagnosis Line: Left atrial enlargement Diagnosis Line: Left axis deviation Diagnosis Line: Left ventricular hypertrophy Diagnosis Line: Prolonged QT Diagnosis Line: Abnormal ECG Diagnosis Line: No previous ECGs available Diagnosis Line: Confirmed by FERMIN ROMERO MD ([id number]) on Diagnosis Line: 06/23/2017 8:03:43 AM INTERPRETING MD: NICK COHEN
--- NOTE | ~2017-06-22 | CR72 ---
[facility] A Service of [facility] & [facility] RADIOLOGY TEXT RESULTS PATIENT: KRISTINE WALLACE LOCATION: [facility] : 57 UNIT #: [id number] AGE: [address]: Taira Dacosta MD SEX: M ORDER DR: [id number] [facility] [address] [place], [place] [address] [id number] E MR#: [id number] Acc #: [id number] NAME: KRISTINE WALLACE. : 1955 SEX: M STUDY DATE/TIME: 06/22/2017 13:27 UNIT: [facility] ROOM: STUDY DESCRIPTION: CR Chest Single View Portable Attending Physician: Tiara Dacosta M.D. Ordering Physician: Ronny Lora D.O. Primary Care Physician: Nazia Rucker M.D. MEDICAL IMAGING REPORT This report is preliminary unless electronic signature is present EXAM Portable chest HISTORY Shortness of air, congestion, cough x1 week. COMPARISON 06/12/2017 FINDINGS Portable view of the chest demonstrates a small amount of lingular subsegmental atelectasis. Also a small amount of left basilar atelectasis. No focal airspace disease or consolidation, no effusions. Heart and mediastinum unremarkable except for borderline cardiomegaly. No pneumothorax. Dictated by... Shaq Moore M.D. THIS IS AN ELECTRONICALLY VERIFIED REPORT Shaq Moore M.D. at 06/23/2017 10:02 AM MAAME/ross TD: 06/23/2017 08:52 JOB #: [id number] MEDICAL IMAGING REPORT Page 1 of 1 COPY
[2017-06-22 13:33] LABS: POC - TROPONIN <0.05 ng/mL (<=0.05)
[2017-06-22 13:34] LABS: BASOPHIL% 0.3 % (0-2.5); EOSINOPHIL# 0.1 X10e3 (0-0.7); EOSINOPHIL% 0.6 % (0.0-7.0); HEMATOCRIT 37.8 % (38.0-50.0); HEMOGLOBIN 12.8 gm/dL (13.0-16.0); LYMPHOCYTE# 1.3 X10e3 (1.0-3.5); MEAN CELL VOLUME 84.5 FL (83-96); MEAN CORPUSCULAR HEMOGLOBIN 28.5 PG (28-34); MEAN CORPUSCULAR HGB CONC 33.8 g/dL (30-36); MEAN PLATELET VOLUME 10.8 FL (6.5-11.5); MONOCYTE# 0.7 X10e3 (0-1.0); MONOCYTE% 4.5 % (3.0-12.0); NEUTROPHIL# 13.9 X10e3 (1.5-7.1); NEUTROPHIL% 86.6 % (40-75); PLATELET COUNT 216 X10e3 (140-420); RED BLOOD COUNT 4.48 X10e (3.90-5.60); RED CELL DISTRIBUTION WIDTH 14.9 % (11.0-15.5)
[2017-06-22 13:35] LABS: DIFF IND NO
[2017-06-22 13:42] LABS: INR 1.1; PARTIAL THROMBOPLASTIN TIME 26.4 SECONDS (23.5-31.3); PROTHROMBIN TIME (PATIENT) 11.4 SECONDS (10.0-11.7)
[2017-06-22 13:53] LABS: ALBUMIN SERUM 3.6 g/dL (3.5-5.0); BILIRUBIN, DIRECT 0.1 mg/dL (0.0-0.2); BILIRUBIN,INDIRECT 0.7 mg/dL (0.0-0.9); BILIRUBIN,TOTAL 0.8 mg/dL (0.2-2.0); BUN/CREATININE RATIO 20.83; CALCIUM SERUM 8.8 mg/dL (8.4-10.2); CREATININE SERUM 1.2 mg/dL (0.6-1.4); GLOM FILT RATE Estimated 75.2 mL/min (>60); POTASSIUM 3.9 mmol/L (3.5-5.1); PROTEIN TOTAL SERUM 6.5 g/dL (6.0-8.3)
[2017-06-22 14:35] LABS: POC - CKMB 2.4 ng/mL (0.0-7.9); POC - TROPONIN <0.05 ng/mL (<=0.05)
== END 2017-06-22 15:04 | disposition home or self-care (01) ==
LOC: CED 11:51
PROVIDERS: Emergency Medicine
DX: J44.1 Chronic obstructive pulmonary disease with (acute) exacerbation (principal)
CPT/HCPCS: 36415; 71010; 80048; 80076; 82553; 83880; 84484; 85025; 85379; 85610; 85730; 93005; 96374; 99285; J2930